=== PATIENT | female | born 1965 | race Caucasian/White ===

== ENCOUNTER 2019-01-27 14:37 | Outpatient (CLI) | payer BC ==
--- NOTE | 2019-01-27 15:09 | RAD ---
EXAM: XR Cervical Spine 4 View Min PROVIDED CLINICAL HISTORY: Neck pain with pain radiating to right arm. Associated finger numbness. COMPARISON: None FINDINGS: C1 to the cervicothoracic junction is seen on the lateral view. Scattered osteophytes are seen in the cervical spine. The vertebral body heights are within normal limits. No fracture or subluxation is seen. There is no abnormal translational motion between the flexion and extension views of the cervic al spine. Prevertebral soft tissues are within normal limits. 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
== END 2019-01-27 14:38 | disposition home or self-care (01) ==
LOC: TBSIIMAG 14:37
PROVIDERS: ATTEND Surgery
DX: M54.2 Cervicalgia (principal); M47.12 Other spondylosis with myelopathy, cervical region
CPT/HCPCS: 72050

== ENCOUNTER 2023-05-22 07:42 | Outpatient (CLI) | payer BC | END 2023-05-22 07:43 | disposition home or self-care (01) | LOC: SCSMRI 07:42 | PROVIDERS: ATTEND Orthopaedic Surgery | DX: M75.41 Impingement syndrome of right shoulder (principal); M25.711 Osteophyte, right shoulder; M25.411 Effusion, right shoulder; M25.811 Other specified joint disorders, right shoulder; M67.813 Other specified disorders of tendon, right shoulder; S43.491A Other sprain of right shoulder joint, initial encounter; M89.311 Hypertrophy of bone, right shoulder ==

== ENCOUNTER 2023-07-18 10:23 | Outpatient (CLI) | payer BC | END 2023-07-18 10:24 | disposition home or self-care (01) | LOC: SCSRAD 10:23 | PROVIDERS: ATTEND Family Medicine | DX: B34.9 Viral infection, unspecified (principal) | CPT/HCPCS: 71046 ==

== ENCOUNTER 2024-09-27 09:08 | Outpatient (CLI) | payer BC | END 2024-09-27 09:09 | disposition home or self-care (01) | LOC: SCSRAD 09:08 | DX: R06.09 Other forms of dyspnea (principal) | CPT/HCPCS: 71046 ==

== ENCOUNTER 2025-05-02 10:52 | Outpatient (CLI) | payer BC | END 2025-05-02 10:53 | disposition home or self-care (01) | LOC: SCSRAD 10:52 | PROVIDERS: ATTEND Orthopaedic Surgery | DX: M54.50 Low back pain, unspecified (principal) | CPT/HCPCS: 72100 ==

== ENCOUNTER 2025-06-21 10:14 | Outpatient (CLI) | payer BC | END 2025-06-21 10:15 | disposition home or self-care (01) | LOC: SCSRAD 10:14 | PROVIDERS: ATTEND Orthopaedic Surgery | DX: M54.50 Low back pain, unspecified (principal); M41.9 Scoliosis, unspecified; M47.816 Spondylosis without myelopathy or radiculopathy, lumbar region; Z98.1 Arthrodesis status | CPT/HCPCS: 72100 ==